=== PATIENT | male | born 1950 | race Caucasian/White ===

== ENCOUNTER 2017-01-16 14:35 | Emergency (ER) | payer OTHER, MEDICARE ==
[2017-01-16] MEDS ORDERED: Sodium Chloride 0.9% 1,000 ML PRIMARY IV ONE (15:10)
[2017-01-16] MEDS ORDERED: NORMAL SALINE 10 ML SYRINGE FLUSH IVP PRN (15:10)
[2017-01-16] MEDS ORDERED: IPRATROPIUM/ALBUTEROL SULFATE 3 ML NEB NEB ONE ×2 (15:10→18:08)
[2017-01-16 15:43] LABS: VENOUS PH 7.46 (7.32-7.42)
[2017-01-16 15:45] LABS: BASOPHILS % (AUTO) 1.1 % (0-1); EOSINOPHILS # (AUTO) 0.19 10*3/UL; EOSINOPHILS % (AUTO) 2.1 % (0-8); HEMATOCRIT 39.7 % (42.0-52.0); HEMOGLOBIN 13.4 g/dL (14.0-18.0); LYMPHOCYTES # (AUTO) 1.25 10*3/uL; MEAN CORPUSCULAR HGB CONC 33.8 g/dL (33-37); MEAN CORPUSCULAR VOLUME 88.8 FL (80-90); MEAN PLATELET VOLUME 9.7 FL (7.4-12.2); MONOCYTES # (AUTO) 1.08 10*3/UL (0.3-0.8); MONOCYTES % (AUTO) 11.7 % (5-15); NEUTROPHILS # (AUTO) 6.58 10*3/UL; NEUTROPHILS % (AUTO) 71.3 % (50-80); RED BLOOD COUNT 4.47 10^6/uL (4.70-6.10)
[2017-01-16 15:49] LABS: PLATELET MORPHOLOGY COMMENT NORMAL MORPHOLOGY (NORM); RBC MORPHOLOGY COMMENT NORMAL MORPHOLOGY (NORM); WBC MORPHOLOGY COMMENT NORMAL MORPHOLOGY (NORM)
[2017-01-16 15:59] VITALS: TEMP 97.3
[2017-01-16 16:05] LABS: BLOOD UREA NITROGEN 23 mg/dL (7-22); CALCIUM 8.8 mg/dL (8.7-10.7); EST GLOMERULAR FILTRATION > 60 (>60 ml/min/1.73m(2)); SERUM ALBUMIN 3.9 g/dL (3.5-4.8)
--- NOTE | 2017-01-16 16:43 | EKG ---
[address] [address] Measurements Intervals [place] Rate: 98 P: 68 NV: 134 QRS: 81 QRSD: 93 T: 59 QT: 348 QTc: 403 Interpretive Statements SINUS RHYTHM PROBABLE SEPTAL MYOCARDIAL INFARCTION [35 ms Q WAVE IN V1/V2], OF INDETERMINATE AGE No previous ECG available for comparison Electronically Signed On 01-18-17 15:30:59 MDT by Kojo Batista MD [email or web address]
[2017-01-16 17:21] VITALS: RESP 18
--- NOTE | 2017-01-16 17:28 | DI ---
HISTORY: Dyspnea and cough. COMPARISON: None available. TECHNIQUE: PA and lateral views of the chest were obtained and submitted for interpretation. FINDINGS: There is evidence of diffuse COPD. Increased interstitial markings and scarring of the pu lmonary viji are noted. IMPRESSION: 1. Mild diffuse chronic obstructive pulmonary disease and increased interstitial markings. NOTIFICATION: The above findings were phoned to Eric Park in the ER Department on 01/16/2017 at 7:38 pm EST.
--- NOTE | 2017-01-16 17:30 | DI ---
HISTORY: Dyspnea. History of bladder cancer. COMPARISON: None available. TECHNIQUE: CT images were obtained through the chest somewhat limited due to poor bolus timing. FINDINGS: There is some scarring in the pulmonary viji and the periphery of the lungs. There is no pulmonary embolism. Coronary artery disease is demonstrated. There is no infiltrate nor effusion. IMPRESSION: 1. No pulmonary embolism. 2. No masses seen. 3. Chronic obstructive pulmonary disease. 4. Simple cysts in the left kidney. 5. Right kidney with mild cortical thinning. NOTIFICATION: The above findings were phoned to Eric Park in the ER Department on 01/16/2017 at 7:38 pm EST.
[2017-01-16] MEDS ORDERED: AZITHROMYCIN 250 MG TABLET PO ONE (18:18)
[2017-01-16] MEDS ORDERED: ALBUTEROL SULFATE 8.5 GM HFA INHALER INH SCH (18:30)
--- NOTE | 2017-01-16 23:54 | PDOC ---
General Adult HPI - General Chief Complaint: Dyspnea Stated Complaint: diff. breathing x 2wks Date Seen by Provider: 01/16/17 Time Seen by Provider: 14:55 Source: POSITIVE: Patient Exam Limitations: POSITIVE: No limitations Nurse's Notes Reviewed & Considered: Yes - History of Present Illness Initial Comment: The patient is a 66-year-old male. He presents to the emergency room complaining of a 2 day history of cough productive of yellowish mucoid sputum. He is also had some shortness of breath during this time. He's not had any known fevers. No hemoptysis. No chest pain. Patient states that he has a history of bladder cancer diagnosed in 2008 and he states that this cancer was metastatic to his lungs. Patient underwent radiation and chemotherapy and he had a cystectomy and bladder reconstruction with his bowel. He has a urinary diversion. He states that his bladder cancer has been diagnosed as resolved. Patient had a myocardial infarction 2 years ago and had a coronary artery stents. Patient states he has had some hoarseness and URI symptoms recently. He smokes 5-15 cigarettes daily. Have you received a tetanus shot in the past 10 years?: Yes Body Location Affected: REPORTS: Chest (Cough, dyspnea) Timing: REPORTS: Gradual Duration: >24 hours Severity: Moderate Quality: REPORTS: Other (Patient denies any pain anywhere) Context: REPORTS: None Modifying Factors: improves with: Coughing Similar Symptoms Previously: Yes Recent Care Received: REPORTS: Denies Any Prior Injuries Related to Current Complaint?: No - Patient Home Medications Home Medications: Home Medications Azithromycin [Zithromax] 500 mg PO DAILY #5 tab 01/16/17 - Patient Allergies Allergies/Adverse Reactions: Allergies Allergy/AdvReac Type Severity Reaction Status Date / Time No Known Allergies Allergy Verified 01/16/17 15:22 Past Medical History - maneen HEENT History: Denies History Cardiovascular History: Previous ME Additional Cardiovasular History: ME with stent x1- 2 years ago Respiratory History: Denies History Gastrointestinal History: Hiatal Hernia Additional Gastrointestinal History: 7-9 hernia surgies Additional Genitourinary History: bladder stones, bladder c/a, bladder rebuild with intestine, kidney ablation Endocrine History: Denies History Musculoskeletal History: Denies History Neurological History: Denies History Blood Disorders: Denies History Psychiatric History: Denies History History of Sexually Transmitted Diseases: No Cancer History: Colon, Other (please comment) Cancer Treatment / Date(s) of Treatment: 8 yrs ago In Past Year Been Physically Harmed or Verbally Threatened: No History of MDRO: No History of Other Communicable Diseases: No Tobacco Use: Current Every Day Smoker Alcohol Use: Occasionally Type of alcohol normally used: Beer, Hard Liquor Substance Use Type: None Previous Surgical History: Yes Type / Date of Surgery: cancer 8yrs ago, 7-9 hernia surgies, [place] w/ luz elena x2 yrs ago Anesthesia Reactions: No Malignant Hyperthermia: No Family History of Malignant Hyperthermia: No Past Medical History Reviewed: Reviewed - No Changes ROS - Limitations ROS Limitations: No Limitations Constitution: REPORTS: Denies Symptoms Cardiovascular: REPORTS: Denies Cardiac Symptoms Respiratory: REPORTS: Cough Productive, Shortness Of Breath, Wheezing Neurological: REPORTS: Denies Neuro Symptoms Gastrointestinal: REPORTS: Denies GI Symptoms Endocrine: REPORTS: Denies Symptoms Musculoskeletal: REPORTS: Denies MS Symptoms Genitourinary: REPORTS: Denies Symptoms Eyes: REPORTS: Denies Symptoms ENT: REPORTS: Denies Symptoms Skin: REPORTS: Denies Skin Symptoms Lympathic: REPORTS: Denies Lympathic Symptoms Immunologic: POSITIVE: Denies Symptoms Psychiatric: POSITIVE: Denies Psych Symptoms General Adult Exam - General Appearance General Appearance: POSITIVE: Alert, Cooperative, No Acute Distress, No Evidence of Trauma - HEENT HEENT: POSITIVE: Head Inspection Nml, Eyes Inspection Nml, Ears Inspection Nml, Nose Inspection Nml, Oral/Dental Inspect. Nml, Pharynx Inspect. Nml, PERRL, EOMI - Pupils Pupil Size: 4 mm: Bilateral - Neck Neck: POSITIVE: Normal Inspection, Thyroid Normal - Respiratory Respiratory: POSITIVE: Chest Non-Tender, Wheezes (Scattered wheezes and rhonchi) , Rhonchi - Cardiovascular Cardiovascular: POSITIVE: Regular Rate & Rhythm, No Murmur, No Gallop, PMI Normal Peripheral Pulses: Radial (R): 2+, Radial (L): 2+ - Abdomen Abdomen: Soft: (All Quadrants), Normal Bowel Sounds: (All Quadrants), Denies Tenderness: (All Quadrants), No Splenomegaly: (All Quadrants), No Hepatomegaly: (All Quadrants), No Guarding: (All Quadrants), No Rebound: (All Quadrants), No Palpable Pulse: (All Quadrants), No Palpabale Mass: (All Quadrants), No Distention: (All Quadrants), No Rigidity: (All Quadrants) - Back Back: POSITIVE: Normal Inspection - Skin Skin: POSITIVE: Normal Color, Warm, Dry, No Rash - Extremities Extremity: Non-Tender: (All Extremities), Normal ROM: (All Extremities), Normal Inspection: (All Extremities) - Neurological / Psychological Neurological: 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 Some COPD. CT chest with contrast shows no masses or pulmonary emboli. No infiltrates. Lab Results Reviewed: Yes Lab Results:: Laboratory Results 01/16/17 01/16/17 01/16/17 Range/Units 15:11 15:35 15:42 WBC 9.22 (4.8-10.8) 10^3/uL RBC 4.47 L (4.70-6.10) 10^6/uL Hgb 13.4 L (14.0-18.0) g/dL Hct 39.7 L (42.0-52.0) % MCV 88.8 (80-90) FL MCH 30.0 (27-31) PG MCHC 33.8 (33-37) g/dL RDW Std Deviation 48.2 (39-50) fL RDW Coeff of Toni 15.2 H (11.5-14.5) % Plt Count 252 (140-350) 10*3/uL MPV 9.7 (7.4-12.2) FL Immature Gran % (Auto) 0.2 (0-5) % Neut % (Auto) 71.3 (50-80) % Lymph % (Auto) 13.6 (10-50) % [place] % (Auto) 11.7 (5-15) % Eos % (Auto) 2.1 (0-8) % Baso % (Auto) 1.1 H (0-1) % Immature Gran # (Auto) 0.02 10*3/UL Neut # (Auto) 6.58 10*3/UL Lymph # (Auto) 1.25 10*3/uL [place] # (Auto) 1.08 H (0.3-0.8) 10*3/UL Eos # (Auto) 0.19 10*3/UL Baso # (Auto) 0.10 10*3/UL WBC Morphology Comment Normal morphology (NORM) Plt Morphology Comment Normal morphology (NORM) RBC Morph Comment Normal morphology (NORM) D-Dimer 0.48 (0.00-0.59) mg/L VBG pH 7.46 H (7.32-7.42) VBG pCO2 33 L (45-55) mmHg VBG HCO3 23 (22-26) mmol/L VBG Base Excess -1 (-2-2) MMOL/L Sodium 141 (135-145) meq/L Potassium 3.7 L (3.8-5.2) meq/L Chloride 107 (98-112) meq/L Carbon Dioxide 26 (23-33) meq/L Anion Gap 8 (5-20) BUN 23 H (7-22) mg/dL Creatinine 1.0 (0.70-1.50) mg/dL Estimated GFR > 60 (>60 ml/min/1.73m(2)) BUN/Creatinine Ratio 23.00 H (6-20) Glucose 84 (78-110) mg/dL Calculated Osmolality 294.0 H (267-292) mOsm/kg Calcium 8.8 (8.7-10.7) mg/dL Magnesium 2.1 (1.6-2.4) mg/dL Total Bilirubin 0.6 (0.3-1.2) mg/dL AST 70 H (21-57) IU/L ALT 66 (21-72) IU/L Alkaline Phosphatase 86 (38-126) IU/L Troponin I 0.031 (< 0.040) ng/mL NT-Pro-B Natriuret Pep 446 H (0-125) PG/ML Total Protein 6.5 (6.1-8.0) g/dL Albumin 3.9 (3.5-4.8) g/dL Globulin 2.6 (2.50-4.10) g/dL Albumin/Globulin Ratio 1.50 (1.3-2.0) mg/g EKG Interpreted/Reviewed By Me:: Yes (compatible with old septal infarct) EKG Interpretation:: POSITIVE: Normal Sinus Rhythm, Normal Rate, Normal Intervals, Normal [place], Abnormal EKG. NEGATIVE: Normal QRS (Q waves in septal leads), Normal ST/T (Compatible with old septal infarct) - Patient's Progress Pain Medication Addressed: POSITIVE: Not Applicable School/Work Release Addressed: POSITIVE: Not Applicable Re-Examine Time: 18:00 Re-Examine Comment: Patient given a DuoNeb nebulizer treatment and later an albuterol nebulizer treatment with complete clearing of his wheezing. Patient feels much better on discharge. Patient has remained afebrile throughout his stay in the emergency room and his oxygen saturations on room air have been in excess of 93%. Status: POSITIVE: Improved, Re-Examined Antibiotics Given: Yes (Zithromax) - Consult Counseled: POSITIVE: Patient, RE: Lab Results, RE: Radiology Results, RE: DX, RE : Need for F/U Patient Care Time - Estimated PCT Patient Care Time (In Minutes): 55 Vital Signs - Recent Vital Signs Vital Signs: Vital Signs (Last 8 hours) Pulse Pulse Resp BP Pulse Ox 01/16/17 17:14 103 H 18 154/104 97 01/16/17 16:49 98 01/16/17 16:08 104 H 16 142/115 - VS Reviewed Vital Signs Reviewed: Yes Discharge Clinical Impression: Bronchitis, Chronic obstructive lung disease Discharge Disposition: Discharged to Home Condition: Fair Prescriptions / Orders: Azithromycin [Zithromax] 500 mg PO DAILY #5 tab Patient Instructions Given at Discharge: Acute Bronchitis (ED), Reactive Airways Disease (ED) Additional Instructions: Use albuterol inhaler, 2 puffs every 4 hours as necessary. STOP SMOKING. Zithromax, 1 tablet daily until gone. Follow-up with your primary care provider. Return here anytime if condition worsens in any way. Follow Up With: JEANETTE ESPARZA [Primary Care Provider] - (Instructions and medications as above. Follow-up with your primary care provider. Return here anytime if condition worsens in any way.)
== END 2017-01-16 18:56 | disposition home or self-care (01) ==
LOC: ER 14:35
DX: J20.9 Acute bronchitis, unspecified (principal); J44.9 Chronic obstructive pulmonary disease, unspecified; R05 Cough; R06.02 Shortness of breath; Z85.51 Personal history of malignant neoplasm of bladder
CPT/HCPCS: 36415 ×2; 71020; 71260; 80053; 82803; 83735; 83880; 84484; 85025; 85379; 93005; 93010; 94640; 99284 ×2; J7620; J7030

== ENCOUNTER 2017-01-18 07:33 | Inpatient (IN) | payer OTHER, MEDICARE ==
[2017-01-18] MEDS ORDERED: Sodium Chloride 0.9% 1,000 ML PRIMARY IV ONE (07:48)
[2017-01-18] MEDS ORDERED: methylPREDNISolone 125 MG/2 ML VIAL IVP ONE (07:48)
[2017-01-18] MEDS ORDERED: NORMAL SALINE 10 ML SYRINGE FLUSH IVP PRN ×2 (07:48→09:54)
[2017-01-18 08:06] LABS: BASOPHILS # (AUTO) 0.07 10*3/UL; EOSINOPHILS % (AUTO) 4.1 % (0-8); HEMATOCRIT 36.6 % (42.0-52.0); HEMOGLOBIN 12.1 g/dL (14.0-18.0); LYMPHOCYTES # (AUTO) 0.84 10*3/uL; MEAN CORPUSCULAR HEMOGLOBIN 29.7 PG (27-31); MEAN CORPUSCULAR HGB CONC 33.1 g/dL (33-37); MEAN CORPUSCULAR VOLUME 89.7 FL (80-90); MEAN PLATELET VOLUME 9.3 FL (7.4-12.2); MONOCYTES # (AUTO) 0.68 10*3/UL (0.3-0.8); MONOCYTES % (AUTO) 9.4 % (5-15); NEUTROPHILS # (AUTO) 5.32 10*3/UL; NEUTROPHILS % (AUTO) 73.6 % (50-80); RED BLOOD COUNT 4.08 10^6/uL (4.70-6.10)
[2017-01-18 08:08] LABS: PLATELET MORPHOLOGY COMMENT NORMAL MORPHOLOGY (NORM); RBC MORPHOLOGY COMMENT NORMAL MORPHOLOGY (NORM); WBC MORPHOLOGY COMMENT NORMAL MORPHOLOGY (NORM)
[2017-01-18 08:09] LABS: VENOUS PH 7.4 (7.32-7.42)
[2017-01-18 08:19] LABS: BLOOD UREA NITROGEN 16 mg/dL (7-22); CALCIUM 8.4 mg/dL (8.7-10.7); EST GLOMERULAR FILTRATION > 60 (>60 ml/min/1.73m(2)); SERUM ALBUMIN 3.3 g/dL (3.5-4.8)
--- NOTE | 2017-01-18 08:36 | PDOC ---
Dyspnea HPI - General Chief Complaint: Dyspnea Stated Complaint: DYSPNEA/COPD Date Seen by Provider: 01/18/17 Time Seen by Provider: 07:40 Source: POSITIVE: Patient, EMS Exam Limitations: POSITIVE: No limitations Treatment Prior to Arrival: REPORTS: Albuterol Neb Treatment, Other (DuoNeb per EMS in route) Nurse's Notes Reviewed & Considered: Yes - History of Present Illness Initial Comments: The patient is a 66-year-old male with a history of COPD who presents to the emergency department by ambulance with worsening shortness of breath. He states about 3 or 4 days ago he had onset of increase in productive cough and shortness of breath. He was evaluated in the emergency room here on Tuesday. He underwent workup including blood work as well as CT scan of the chest which showed emphysematous changes with no evidence of PE or obvious pneumonia. The patient does have a history of metastatic bladder cancer. He was discharged home with a prescription for Zithromax which she has been taking. He states that he woke up early this morning and states that he could not breathe. His lungs were very congested. He called EMS. When they arrived he was hypoxic. He received a DuoNeb and albuterol neb treatment in route and is feeling better on arrival. He does not normally wear oxygen at home. He does continue to smoke. He uses an albuterol inhaler at home. He does not currently have a nebulizer at home. He denies chest pain, fevers or chills or any other associated complaints. - Patient Home Medications Home Medications: Home Medications Azithromycin [Zithromax] 500 mg PO DAILY #5 tab 01/16/17 Albuterol 17 gm IH QID PRN 01/18/17 Atorvastatin Calcium 10 mg PO DAILY 01/18/17 Lisinopril 5 mg PO DAILY 01/18/17 Omeprazole 20 mg PO DAILY 01/18/17 - Patient Allergies Allergies/Adverse Reactions: Allergies Allergy/AdvReac Type Severity Reaction Status Date / Time No Known Allergies Allergy Verified 01/18/17 07:42 Past Medical History - heen HEENT History: Denies History Cardiovascular History: Hypertension, Previous IL, Hyperlipidemia Additional Cardiovasular History: IL with stent x1- 2 years ago Respiratory History: COPD, Emphysema Gastrointestinal History: GERD, Hiatal Hernia Additional Gastrointestinal History: 7-9 hernia surgies Additional Genitourinary History: bladder stones, bladder c/a, bladder rebuild with intestine, kidney ablation Endocrine History: Denies History Musculoskeletal History: Denies History Prosthesis or Implant: No Neurological History: Denies History Blood Disorders: Denies History Psychiatric History: Denies History History of Sexually Transmitted Diseases: No Cancer History: Other (please comment) Cancer Treatment / Date(s) of Treatment: 2008 In Past Year Been Physically Harmed or Verbally Threatened: No History of MDRO: No History of Other Communicable Diseases: No Tobacco Use: Former Smoker Alcohol Use: Rarely Substance Use Type: None Previous Surgical History: Yes Type / Date of Surgery: cancer 8yrs ago, 7-9 hernia surgies, [place] w/ luz elena x2 yrs ago Anesthesia Reactions: No Malignant Hyperthermia: No Past Medical History Reviewed: Reviewed - No Changes ROS - Limitations ROS Limitations: No Limitations Constitution: DENIES: Chills, Fever Cardiovascular: DENIES: Chest Pain, Heart Racing Respiratory: REPORTS: Cough Productive, Shortness Of Breath, Wheezing Neurological: REPORTS: Denies Neuro Symptoms Gastrointestinal: REPORTS: Denies GI Symptoms Musculoskeletal: REPORTS: Denies MS Symptoms Eyes: REPORTS: Denies Symptoms ENT: REPORTS: Denies Symptoms Skin: DENIES: Rash Dyspnea Physical Exam - General Appearance General Appearance: REPORTS: Alert, Cooperative, No Acute Distress - HEENT HEENT: POSITIVE: Head Inspection Nml, Eyes Inspection Nml, Oral/Dental Inspect. Nml, Pharynx Inspect. Nml - Respiratory Respiratory: REPORTS: No Respiratory Distress, Other (He does have rhonchi bilaterally as well as some expiratory wheeze, prolonged expiration) - Cardiovascular Cardiovascular: REPORTS: Regular Rate and Rhythm, Heart Sounds Normal Peripheral Pulses: Dorsalis-pedis (R): 2+, Dorsalis-pedis (L): 2+ - Abdomen Abdomen: Soft: (All Quadrants), Denies Tenderness: (All Quadrants), No Distention: (All Quadrants) - Skin Skin: REPORTS: Intact, No Rash - Extremities Extremity: Normal ROM: (All Extremities), Normal Inspection: (All Extremities) - Neurological / Psychological Neurological: POSITIVE: Oriented X3, Motor Normal, Sensation Normal Dyspnea Progress - Results Reviewed by me Xrays/CTs/US Reviewed by me: Yes Radiology Findings: Chest x-ray shows emphysematous changes with no acute infiltrate, no change when compared to 2 days ago. Lab Results Reviewed: Yes Lab Results:: Laboratory Results 01/18/17 01/18/17 Range/Units 08:02 08:04 WBC 7.23 (4.8-10.8) 10^3/uL RBC 4.08 L (4.70-6.10) 10^6/uL Hgb 12.1 L (14.0-18.0) g/dL Hct 36.6 L (42.0-52.0) % MCV 89.7 (80-90) FL MCH 29.7 (27-31) PG MCHC 33.1 (33-37) g/dL RDW Std Deviation 48.7 (39-50) fL RDW Coeff of Toni 15.0 H (11.5-14.5) % Plt Count 237 (140-350) 10*3/uL MPV 9.3 (7.4-12.2) FL Immature Gran % (Auto) 0.3 (0-5) % Neut % (Auto) 73.6 (50-80) % Lymph % (Auto) 11.6 (10-50) % [place] % (Auto) 9.4 (5-15) % Eos % (Auto) 4.1 (0-8) % Baso % (Auto) 1.0 (0-1) % Immature Gran # (Auto) 0.02 10*3/UL Neut # (Auto) 5.32 10*3/UL Lymph # (Auto) 0.84 10*3/uL [place] # (Auto) 0.68 (0.3-0.8) 10*3/UL Eos # (Auto) 0.30 10*3/UL Baso # (Auto) 0.07 10*3/UL WBC Morphology Comment Normal morphology (NORM) Plt Morphology Comment Normal morphology (NORM) RBC Morph Comment Normal morphology (NORM) VBG pH 7.40 (7.32-7.42) VBG pCO2 36 L (45-55) mmHg VBG HCO3 22 (22-26) mmol/L VBG Base Excess -2 (-2-2) MMOL/L Sodium 137 (135-145) meq/L Potassium 3.4 L (3.8-5.2) meq/L Chloride 106 (98-112) meq/L Carbon Dioxide 25 (23-33) meq/L Anion Gap 6 (5-20) BUN 16 (7-22) mg/dL Creatinine 1.0 (0.70-1.50) mg/dL Estimated GFR > 60 (>60 ml/min/1.73m(2)) BUN/Creatinine Ratio 16.00 (6-20) Glucose 97 (78-110) mg/dL Calculated Osmolality 284.0 (267-292) mOsm/kg Calcium 8.4 L (8.7-10.7) mg/dL Total Bilirubin 0.3 (0.3-1.2) mg/dL AST 46 (21-57) IU/L ALT 55 (21-72) IU/L Alkaline Phosphatase 74 (38-126) IU/L C-Reactive Protein 1.5 H (0.0-0.9) mg/dL Total Protein 5.9 L (6.1-8.0) g/dL Albumin 3.3 L (3.5-4.8) g/dL Globulin 2.6 (2.50-4.10) g/dL Albumin/Globulin Ratio 1.20 L (1.3-2.0) mg/g - Patient's Progress MDM / ED Course: The patient is afebrile and already on antibiotics, he had a CT scan of the chest that did not show any evidence of pneumonia 2 days ago. He was started on Solu-Medrol 125 mg IV. We attempted to take him off his oxygen however on room air he does dip into the mid-to upper 80s and he was placed back on oxygen per nasal cannula. Blood work today is essentially unremarkable. Findings were discussed with the patient. [place] it would be best that he be admitted for COPD exacerbation and hypoxia. The patient is in agreement with this plan. Dr. Howard has agreed to admit the patient as well. - Consult Counseled: POSITIVE: Patient, RE: Lab Results, RE: Radiology Results, RE: DX, RE : Need for F/U Patient Care Time - Estimated PCT Patient Care Time (In Minutes): 30 Vital Signs - Recent Vital Signs Vital Signs: Vital Signs (Last 8 hours) Temp Pulse Resp BP Pulse Ox 01/18/17 08:12 94 01/18/17 08:00 89 01/18/17 07:35 97.3 F 96 18 142/92 94 - VS Reviewed Vital Signs Reviewed: Yes (written nursing documentation reviewed) Discharge Clinical Impression: COPD exacerbation, Hypoxemia Discharge Disposition: Admit to Inpatient Condition: Fair Follow Up With: NONE,NONE [Primary Care Provider] - Date Decision to Admit to Inpatient: 01/18/17 Time Decision to Admit to Inpatient: 08:30
[2017-01-18] MEDS ORDERED: ACETAMINOPHEN 325 MG TABLET PO ONE (08:45)
[2017-01-18] MEDS ORDERED: KETOROLAC 15 MG/1 ML VIAL IVP ONE (08:45)
--- NOTE | 2017-01-18 08:56 | DI ---
PA /LATERAL CHEST X-RAY, 01/18/2017 7:48 AM : Clinical History: Cough. Previous Exam: 01/16/2017. There is no acute soft tissue or bony abnormality. Heart size is normal. There is no acute infiltrate or effusion, but there is some blunting of the left costophrenic angle and the left hilum is retract ed superiorly. There are some fibronodular stranding changes in the left upper lobe. This patient may have had a partial lobectomy probably involving the left upper lobe. The other possibility is that t he patient has had chronic scarring from a previous inflammatory process in the left upper lobe. Ther e is centrilobular emphysema. Mediastinal structures are otherwise normal. There are no pulmonary nod ules. Readin. There is no acute infiltrate or effusion. 2. There is volume loss in the left upper lobe. The left hilum is retracted superiorly. This patient either has had a previous partial left upper lobectomy or significant postinflammatory scarring in t he left upper lobe. 3. Centrilobular emphysema. There is chronic blunting of the left costophrenic angle.
[2017-01-18] MEDS ORDERED: methylPREDNISolone 125 MG/2 ML VIAL IVP SCH (09:54)
[2017-01-18] MEDS ORDERED: ALBUTEROL SULFATE 2.5 MG/3 ML NEB PRN (09:54)
[2017-01-18] MEDS ORDERED: LIDOCAINE W/ SODIUM BICARB 0.5 ML SYR SUBD PRN (09:54)
[2017-01-18] MEDS ORDERED: Pneumococcal Vacc 13 Syringe 0.5 ML DISP.SYRIN IM SCH (10:15)
[2017-01-18] MEDS: cefTRIAXone Inj 2 GM in Sodium Chloride 0.9% 100 ML IV SCH (10:26)
[2017-01-18] MEDS: IPRATROPIUM/ALBUTEROL SULFATE 3 ML NEB NEB SCH ×3 (11:21→18:55)
[2017-01-18] MEDS: methylPREDNISolone 125 MG/2 ML VIAL IVP SCH ×2 (14:09→20:17)
[2017-01-18] MEDS ORDERED: Pantoprazole Inj 40 MG in Normal Saline Flush 10 ML IVP ONE (14:47)
--- NOTE | 2017-01-18 19:59 | PDOC ---
History and Physical - History of Present Illness Date and Time of Service: 01/18/2017, 1330 Chief Complaint: cough and air hunger. History of Present Illness: This is a very pleasant 66 YO male with a history of tobacco abuse, HTN, high cholesterol and bladder cancer that presented earlier this AM with complaints of air hunger and not being able to catch his breath. He also stated he has had a cough for two months that seems to be getting worse. No fevers or chills. Has been on antibiotics for frequent UTIs in the past two months that have sometimes helped his cough. He does complain of throat drainage and attributes that to heartburn. He notes that his voice has been hoarse, but seems worse prior to breathing therapies. This morning, the cough and shortness of breath were as severe as the other day when he came into the emergency room. At that time, he had a negative CT for pulmonary embolism work up and was sent home on zithromax for a diagnosis of COPD with an exacerbation. He got steroids this morning and we ordered Rocephin. His cough is better when I see him today. Past Medical History Medical History: 1. COPD, not on oxygen at home. 2. HTN. 3. history of stage IV bladder cancer s/p diverting conduit with chronic catheter placement. multiple surgeries and radiation. 4. Hypercholesterolemia. 5. Hx of tobacco abuse. Surgical History: 1. surgeries related to bladder cancer with a conduit. 2. hernia repair. Pertinent Family History: significant for diabetes on his mother's side of the family Past Social History: X 3. has one healthy son. 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 quit smoking a year ago and does not drink alcohol. does drink up to 8 cups of coffee daily. Tobacco Use: Former Smoker Substance Use Type: None Alcohol Use: None Medication / Allergies Home Medications: Home Medications Medication Instructions Recorded Confirmed Type Azithromycin [Zithromax] 500 mg PO DAILY #5 tab 01/16/17 01/18/17 Rx Albuterol 17 gm IH QID PRN 01/18/17 01/18/17 History Atorvastatin Calcium 10 mg PO DAILY 01/18/17 01/18/17 History Lisinopril 5 mg PO DAILY 01/18/17 01/18/17 History Omeprazole 20 mg PO DAILY 01/18/17 01/18/17 History Allergies/Adverse Reactions: Allergies Allergy/AdvReac Type Severity Reaction Status Date / Time No Known Allergies Allergy Verified 01/18/17 18:14 Review of Systems - Review of Systems All Systems: Reviewed & No Additional Complaints Except as Stated (I did a 12 point review of systems and it was negative exept as per HPI and noted exceptions below:) - Ear/Nose Exam Ear/Nose Exam: REPORTS: Other (notes post pharyngeal drip) - Mouth/Throat Mouth/Throat Exam: REPORTS: Hoarseness (he states it is chronic) - Respiratory Respiratory: REPORTS: Cough (for past two months.) - Gastrointestinal Gastrointestinal / Abdominal: REPORTS: Heartburn - Genitourinary Genitourinary: REPORTS: Other (extensive bladder cancer therapy with diverting conduit and indwelling catheter and frequent UTIs) - Musculoskeletal Musculoskeletal: REPORTS: Negative System Review - Hematlogic / Lymphatic Hematologic / Lymphatic: REPORTS: Other (bladder cancer in past) - Neurological Neurologic: REPORTS: Negative System Review - Psychiatric Psychiatric: DENIES: Anhedonia, Anxiety, Depressed, Hopelessness, Hospitalization, Negative System Review, Other, Panic, Sadness, See HPI, Suicidality, Tearfullness Exam - Vitals Vital Signs: Vital Signs Temperature 97.8 F Temperature Source Temporal Artery Scan Pulse Rate [Apical] 86 Pulse Rate [Pulse Oximeter] 94 Pulse Rate 94 Respiratory Rate 16 Blood Pressure [Right Arm] 127/65 Blood Pressure 137/101 Pulse Ox 94 Oxygen Flow Rate 2 Oxygen Delivery Method Room Air Height 6 ft Weight 202 lb 11.2 oz - General General Appearance: POSITIVE: No Acute Distress, Cooperative - Head Head Exam: POSITIVE: Normal Inspection, Normocephalic, Atraumatic - Eye Eye Exam: POSITIVE: EOMI, No Scleral Icterus - ENT ENT Exam: POSITIVE: Mucous Membranes Moist - Neck Neck Exam: POSITIVE: Normal Inspection, No Tenderness, No Thyromegaly - Respiratory Respiratory Exam: POSITIVE: Breathing Non Labored, Normal to Percussion and Palpation, Coarse Breath Sounds - Cardiovascular Cardiovascular Exam: POSITIVE: RRR, No Murmur, No Clicks, No Gallops, No Rubs, No JVD - GI/Abdominal GI/Abdominal Exam: POSITIVE: Normal Bowel Sounds, Non Tender, Non Distended, Soft Additional GI/Abdominal Exam Details: scars from prior ileoconduit for bladder noted. indwelling catheter in left mid lower quadrant of abdomen without erythema or discharge. - Rectal Rectal Exam: POSITIVE: Deferred - External Exam: POSITIVE: Deferred Exam: POSITIVE: Deferred - Extremities Extremities Exam: POSITIVE: No Clubbing Present, No Edema Present, No Cyanosis Present - Back Back Exam: POSITIVE: Normal Inspection, No CVA Tenderness - Neurological Neurological Exam: POSITIVE: Alert, Oriented x 3, No Facial Droop, Speech Intact / Clear, Moves All Extremities Equally - Psychiatric Psychiatric Exam: POSITIVE: Normal Affect, Normal Mood - Central Line Examination Central Line Present on Admission: No Results - Labs CBC and BMP: 01/18/17 08:02 01/18/17 08:02 Labs - Last 24 Hours: Laboratory Results 01/18/17 01/18/17 Range/Units 08:02 08:04 WBC 7.23 (4.8-10.8) 10^3/uL RBC 4.08 L (4.70-6.10) 10^6/uL Hgb 12.1 L (14.0-18.0) g/dL Hct 36.6 L (42.0-52.0) % MCV 89.7 (80-90) FL MCH 29.7 (27-31) PG MCHC 33.1 (33-37) g/dL RDW Std Deviation 48.7 (39-50) fL RDW Coeff of Toni 15.0 H (11.5-14.5) % Plt Count 237 (140-350) 10*3/uL MPV 9.3 (7.4-12.2) FL Immature Gran % (Auto) 0.3 (0-5) % Neut % (Auto) 73.6 (50-80) % Lymph % (Auto) 11.6 (10-50) % [place] % (Auto) 9.4 (5-15) % Eos % (Auto) 4.1 (0-8) % Baso % (Auto) 1.0 (0-1) % Immature Gran # (Auto) 0.02 10*3/UL Neut # (Auto) 5.32 10*3/UL Lymph # (Auto) 0.84 10*3/uL [place] # (Auto) 0.68 (0.3-0.8) 10*3/UL Eos # (Auto) 0.30 10*3/UL Baso # (Auto) 0.07 10*3/UL WBC Morphology Comment Normal morphology (NORM) Plt Morphology Comment Normal morphology (NORM) RBC Morph Comment Normal morphology (NORM) VBG pH 7.40 (7.32-7.42) VBG pCO2 36 L (45-55) mmHg VBG HCO3 22 (22-26) mmol/L VBG Base Excess -2 (-2-2) MMOL/L Sodium 137 (135-145) meq/L Potassium 3.4 L (3.8-5.2) meq/L Chloride 106 (98-112) meq/L Carbon Dioxide 25 (23-33) meq/L Anion Gap 6 (5-20) BUN 16 (7-22) mg/dL Creatinine 1.0 (0.70-1.50) mg/dL Estimated GFR > 60 (>60 ml/min/1.73m(2)) BUN/Creatinine Ratio 16.00 (6-20) Glucose 97 (78-110) mg/dL Calculated Osmolality 284.0 (267-292) mOsm/kg Calcium 8.4 L (8.7-10.7) mg/dL Total Bilirubin 0.3 (0.3-1.2) mg/dL AST 46 (21-57) IU/L ALT 55 (21-72) IU/L Alkaline Phosphatase 74 (38-126) IU/L C-Reactive Protein 1.5 H (0.0-0.9) mg/dL Total Protein 5.9 L (6.1-8.0) g/dL Albumin 3.3 L (3.5-4.8) g/dL Globulin 2.6 (2.50-4.10) g/dL Albumin/Globulin Ratio 1.20 L (1.3-2.0) mg/g - EKG Data -: EKG Interpreted by Me (from 01/16/2017) Rate: Normal EKG Shows Normal: Sinus Rhythm - Imaging Status: Image Reviewed by Me (CXR and CT scan reviewed by me. CXR from today consistent with COPD. CT of chest from 01/16/2017 does not show any pneumonia, looks like it is positive for emphysema) Assessment and Plan - Patient Problems (1) COPD exacerbation Current Visit: Yes Status: Acute (2) Hypercholesteremia Current Visit: Yes Status: Acute (3) HTN (hypertension) Current Visit: Yes Status: Acute Qualifiers: Hypertension type: essential hypertension Qualified Description: Essential hypertension Qualifier Code(s): (I10) Essential (primary) hypertension (4) Hx of bladder cancer Current Visit: Yes Status: Acute - Assessment / Plan Additional Assessment/Plan Details: admit treat with IV rocephin initially, along with steroids given hoarseness, consider laryngeal trachael reflux, or other laryngeal problems and get ENT evaluation post hospital stay. PPI on a BID basis have patient cut back to no more than 2 cups of coffee to minimize cough symptoms from GERD which the patient likely has if reflux and cough persist despite these issues, stop the ACEI and patient may need further GI work up oxygen if indicated check labs in AM discussed with the patient and he agrees with the plan.
[2017-01-18] MEDS: Pantoprazole Inj 40 MG in Normal Saline Flush 10 ML IVP SCH (20:17)
[2017-01-18] MEDS: ATORVASTATIN 10 MG TABLET PO SCH (20:18)
[2017-01-19] MEDS: methylPREDNISolone 125 MG/2 ML VIAL IVP SCH ×4 (01:10→20:02)
[2017-01-19 04:30] LABS: VENOUS PH 7.43 (7.32-7.42)
[2017-01-19 04:41] LABS: BASOPHILS # (AUTO) 0.01 10*3/UL; BASOPHILS % (AUTO) 0.1 % (0-1); EOSINOPHILS # (AUTO) 0 10*3/UL; EOSINOPHILS % (AUTO) 0 % (0-8); HEMATOCRIT 35.8 % (42.0-52.0); HEMOGLOBIN 11.9 g/dL (14.0-18.0); LYMPHOCYTES # (AUTO) 0.44 10*3/uL; MEAN CORPUSCULAR HEMOGLOBIN 29.5 PG (27-31); MEAN CORPUSCULAR HGB CONC 33.2 g/dL (33-37); MEAN CORPUSCULAR VOLUME 88.6 FL (80-90); MEAN PLATELET VOLUME 9.7 FL (7.4-12.2); MONOCYTES % (AUTO) 1.6 % (5-15); NEUTROPHILS # (AUTO) 11.77 10*3/UL; NEUTROPHILS % (AUTO) 94.5 % (50-80); RED BLOOD COUNT 4.04 10^6/uL (4.70-6.10)
[2017-01-19 04:51] LABS: BLOOD UREA NITROGEN 19 mg/dL (7-22); BUN/CREATININE RATIO 21.11 (6-20); CALCIUM 8.5 mg/dL (8.7-10.7); EST GLOMERULAR FILTRATION > 60 (>60 ml/min/1.73m(2))
[2017-01-19 05:08] LABS: PLATELET MORPHOLOGY COMMENT NORMAL MORPHOLOGY (NORM); RBC MORPHOLOGY COMMENT NORMAL MORPHOLOGY (NORM); WBC MORPHOLOGY COMMENT NORMAL MORPHOLOGY (NORM)
[2017-01-19] MEDS: IPRATROPIUM/ALBUTEROL SULFATE 3 ML NEB NEB SCH ×4 (07:01→18:26)
[2017-01-19] MEDS ORDERED: LISINOPRIL 5 MG TABLET PO SCH (09:00)
[2017-01-19] MEDS ORDERED: Sodium Chloride 0.9% 100 ML IV ONE (10:10)
[2017-01-19] MEDS: cefTRIAXone Inj 2 GM in Sodium Chloride 0.9% 100 ML IV SCH (10:14)
[2017-01-19] MEDS: Pantoprazole Inj 40 MG in Normal Saline Flush 10 ML IVP SCH ×2 (10:14→20:00)
[2017-01-19] MEDS: ENOXAPARIN SODIUM 40 MG/0.4 ML SYRINGE SUBCUT SCH (10:14)
--- NOTE | 2017-01-19 17:20 | PE ---
[facility] [place] Interpretive Statements [email or web address]
--- NOTE | 2017-01-19 19:44 | PDOC(PROG) ---
Date and Time of Service: 01/19/2017, 1939 Interval History: patient seen and evaluated earlier today. no chest pain. cough improved some. voice hoarseness about the same. no nausea or vomiting. Objective : Data - Labs CBC and BMP: 01/19/17 04:15 01/19/17 04:15 Labs - Last 24 Hours: Laboratory Results 01/19/17 01/19/17 Range/Units 04:15 04:25 WBC 12.46 H (4.8-10.8) 10^3/uL RBC 4.04 L (4.70-6.10) 10^6/uL Hgb 11.9 L (14.0-18.0) g/dL Hct 35.8 L (42.0-52.0) % MCV 88.6 (80-90) FL MCH 29.5 (27-31) PG MCHC 33.2 (33-37) g/dL RDW Std Deviation 47.0 (39-50) fL RDW Coeff of Toni 14.8 H (11.5-14.5) % Plt Count 275 (140-350) 10*3/uL MPV 9.7 (7.4-12.2) FL Immature Gran % (Auto) 0.3 (0-5) % Neut % (Auto) 94.5 H (50-80) % Lymph % (Auto) 3.5 L (10-50) % [place] % (Auto) 1.6 L (5-15) % Eos % (Auto) 0 (0-8) % Baso % (Auto) 0.1 (0-1) % Immature Gran # (Auto) 0.04 10*3/UL Neut # (Auto) 11.77 10*3/UL Lymph # (Auto) 0.44 10*3/uL [place] # (Auto) 0.20 L (0.3-0.8) 10*3/UL Eos # (Auto) 0 10*3/UL Baso # (Auto) 0.01 10*3/UL WBC Morphology Comment Normal morphology (NORM) Plt Morphology Comment Normal morphology (NORM) RBC Morph Comment Normal morphology (NORM) VBG pH 7.43 H (7.32-7.42) VBG pCO2 35 L (45-55) mmHg VBG HCO3 23 (22-26) mmol/L VBG Base Excess -1 (-2-2) MMOL/L Sodium 136 (135-145) meq/L Potassium 3.9 (3.8-5.2) meq/L Chloride 105 (98-112) meq/L Carbon Dioxide 25 (23-33) meq/L Anion Gap 6 (5-20) BUN 19 (7-22) mg/dL Creatinine 0.9 (0.70-1.50) mg/dL Estimated GFR > 60 (>60 ml/min/1.73m(2)) BUN/Creatinine Ratio 21.11 H (6-20) Glucose 153 H (78-110) mg/dL Calculated Osmolality 286.0 (267-292) mOsm/kg Calcium 8.5 L (8.7-10.7) mg/dL Additional Lab Results: I had the patient do pulmonary function tests. The airflow and FEV1 are all consistent with mild COPD. Objective : Exam - General General Appearance: No Acute Distress, Cooperative Additional General Exam Details: Vital Signs - Last Taken Temperature 97.9 F 01/19/17 17:00 Pulse Rate 104 H 01/19/17 17:00 Respiratory Rate 20 01/19/17 17:00 Blood Pressure 141/82 01/19/17 17:00 Pulse Ox 94 01/19/17 17:00 - Head Head Exam: Normal Inspection, Normocephalic, Atraumatic - Respiratory Respiratory Exam: Breathing Non Labored, Decreased Breath Sounds - Cardiovascular Cardiovascular Exam: RRR, No Murmur, No Clicks, No Gallops, No Rubs, No JVD - GI/Abdominal GI/Abdominal Exam: Normal Bowel Sounds, Non Tender, Non Distended, Soft - Extremities Extremities Exam: No Clubbing Present, No Edema Present, No Cyanosis Present - Neurological Neurological Exam: Alert, Oriented x 3, No Facial Droop, Speech Intact / Clear, Moves All Extremities Equally Assessment and Plan - Patient Problems (1) COPD exacerbation Current Visit: Yes Status: Acute (2) Hypercholesteremia Current Visit: Yes Status: Acute (3) HTN (hypertension) Current Visit: Yes Status: Acute Qualifiers: Hypertension type: essential hypertension Qualified Description: Essential hypertension Qualifier Code(s): (I10) Essential (primary) hypertension (4) Hx of bladder cancer Current Visit: Yes Status: Acute - Assessment / Plan Additional Assessment/Plan Details: continue antibiotics and steroids, taper the steroids as an outpatient will switch to oral antibiotics tomorrow has steroid induced hyperglycemia, check A1C may benefit the most from his smoking cessation over this past year. Given COPD , oxygen when indicated ENT evaluation arranged for later this month (regarding: voice hoarseness) changed ACEI as requested by patient, but cough is generally a class side effect and not specific to one agent. may need to consider different class of antihypertensives if not seeing improvements in cough over next two months. continue BID PPI. I think LTR is likely; cut back on caffeine consumption.
[2017-01-19] MEDS: ATORVASTATIN 10 MG TABLET PO SCH (20:01)
[2017-01-20] MEDS: methylPREDNISolone 125 MG/2 ML VIAL IVP SCH ×2 (01:47→08:24)
[2017-01-20] MEDS: IPRATROPIUM/ALBUTEROL SULFATE 3 ML NEB NEB SCH ×2 (06:19→10:35)
[2017-01-20] MEDS: ENOXAPARIN SODIUM 40 MG/0.4 ML SYRINGE SUBCUT SCH (08:26)
[2017-01-20] MEDS: Pantoprazole Inj 40 MG in Normal Saline Flush 10 ML IVP SCH (08:27)
[2017-01-20 09:00] VITALS: RESP 20; TEMP 98.3
[2017-01-20] MEDS ORDERED: RAMIPRIL 2.5 MG CAPSULE PO SCH (09:00)
[2017-01-20] MEDS: cefTRIAXone Inj 2 GM in Sodium Chloride 0.9% 100 ML IV SCH (09:36)
[2017-01-20] MEDS ORDERED: CEFUROXIME 500 MG TABLET PO ONE (09:43)
--- NOTE | 2017-01-20 10:46 | DCSUMMARY ---
Hospitalization Summary Admit Date: 01/18/17 Discharge Date: 01/20/17 Primary Diagnosis:: COPD exacerbation Hospital Course: This very pleasant 66-year-old male who came in with symptoms of cough for 2 months, no hypoxia, but definite change in his cough and increased shortness of breath. He stated breathing treatments helped, and he was admitted for COPD exacerbation. We placed him on Rocephin and steroids, and eventually switched him to cefuroxime and prednisone. He has significantly improved, cough is resolved, and he is feeling much better. The patient does continue to have a hoarse voice although somewhat better through the hospital stay. It could be that he has laryngeal tracheal reflux or that he has some other pathology going on given his smoking history. We have arranged for him to see research worker encyclopedia Dr. Fitch in [place] later this month. Given the improvement in symptoms, no completes of chest pain, shortness breath , nausea or vomiting or abdominal pain today, patient is discharged home. Assessment and Plan: 1. As per discharge assessments noted 2. Disposition: Patient is discharged home. 3. Condition on discharge, stable and improved. 4. Diet: regular diet 5. Activities: resume normal activities 6. Follow-Up: 1. See primary care provider in 7 days post discharge 2. See Dr. Fitch with ear nose and throat in [place] later this month for evaluation of voice hoarseness in place and report to the [place] [facility]. 7. Medications at the Time of Discharge: Home Medications Medication Instructions Recorded Confirmed Type Albuterol 17 gm IH QID PRN 01/18/17 01/18/17 History Atorvastatin Calcium 10 mg PO DAILY 01/18/17 01/18/17 History Albuterol/Ipratrop Neb Soln 3 ml IH Q6H PRN #120 ampul.neb 01/19/17 Rx [Duoneb Neb Soln] Cefuroxime Axetil [Ceftin] 500 mg PO BID #8 tablet 01/19/17 Rx Pantoprazole Sodium [Protonix] 40 mg PO BID #60 tablet 01/19/17 Rx Prednisone 10 mg PO DAILY #30 tab 01/19/17 Rx Ramipril [Altace] 5 mg PO DAILY cap 01/19/17 Rx 8. Time, care, counseling and coordination of care for this discharge is less than 30 minutes. Exam - Vitals Vital Signs: Vital Signs Vital Signs - Last Taken Temperature 98.3 F 01/20/17 08:56 Pulse Rate 89 01/20/17 08:56 Respiratory Rate 20 01/20/17 08:56 Blood Pressure 109/70 01/20/17 08:56 Pulse Ox 95 01/20/17 08:56 Pulse Ox 95 Oxygen Flow Rate 2 Oxygen Delivery Method Room Air Height 6 ft Weight 201 lb 6 oz - General General Appearance: POSITIVE: No Acute Distress, Cooperative - Eye Eye Exam: POSITIVE: No Scleral Icterus - ENT ENT Exam: POSITIVE: Mucous Membranes Moist - Respiratory Respiratory Exam: POSITIVE: Clear to Auscultation - Bilaterally, Breathing Non Labored - Cardiovascular Cardiovascular Exam: POSITIVE: RRR, No Murmur, No Clicks, No Gallops, No Rubs, No JVD - GI/Abdominal GI/Abdominal Exam: POSITIVE: Normal Bowel Sounds, Non Tender, Non Distended, Soft - Extremities Extremities Exam: POSITIVE: No Clubbing Present, No Edema Present, No Cyanosis Present - Neurological Neurological Exam: POSITIVE: Alert, Oriented x 3, No Facial Droop, Speech Intact / Clear, Moves All Extremities Equally Data Perinent Studies: Laboratory Results 01/18/17 01/18/17 01/19/17 Range/Units 08:02 08:04 04:15 WBC 7.23 12.46 H (4.8-10.8) 10^3/uL RBC 4.08 L 4.04 L (4.70-6.10) 10^6/uL Hgb 12.1 L 11.9 L (14.0-18.0) g/dL Hct 36.6 L 35.8 L (42.0-52.0) % MCV 89.7 88.6 (80-90) FL MCH 29.7 29.5 (27-31) PG MCHC 33.1 33.2 (33-37) g/dL RDW Std Deviation 48.7 47.0 (39-50) fL RDW Coeff of Toni 15.0 H 14.8 H (11.5-14.5) % Plt Count 237 275 (140-350) 10*3/uL MPV 9.3 9.7 (7.4-12.2) FL Immature Gran % (Auto) 0.3 0.3 (0-5) % Neut % (Auto) 73.6 94.5 H (50-80) % Lymph % (Auto) 11.6 3.5 L (10-50) % [place] % (Auto) 9.4 1.6 L (5-15) % Eos % (Auto) 4.1 0 (0-8) % Baso % (Auto) 1.0 0.1 (0-1) % Immature Gran # (Auto) 0.02 0.04 10*3/UL Neut # (Auto) 5.32 11.77 10*3/UL Lymph # (Auto) 0.84 0.44 10*3/uL [place] # (Auto) 0.68 0.20 L (0.3-0.8) 10*3/UL Eos # (Auto) 0.30 0 10*3/UL Baso # (Auto) 0.07 0.01 10*3/UL WBC Morphology Comment Normal morphology Normal morphology (NORM) Plt Morphology Comment Normal morphology Normal morphology (NORM) RBC Morph Comment Normal morphology Normal morphology (NORM) VBG pH 7.40 (7.32-7.42) VBG pCO2 36 L (45-55) mmHg VBG HCO3 22 (22-26) mmol/L VBG Base Excess -2 (-2-2) MMOL/L Sodium 137 136 (135-145) meq/L Potassium 3.4 L 3.9 (3.8-5.2) meq/L Chloride 106 105 (98-112) meq/L Carbon Dioxide 25 25 (23-33) meq/L Anion Gap 6 6 (5-20) BUN 16 19 (7-22) mg/dL Creatinine 1.0 0.9 (0.70-1.50) mg/dL Estimated GFR > 60 > 60 (>60 ml/min/1.73m(2)) BUN/Creatinine Ratio 16.00 21.11 H (6-20) Glucose 97 153 H (78-110) mg/dL Calculated Osmolality 284.0 286.0 (267-292) mOsm/kg Calcium 8.4 L 8.5 L (8.7-10.7) mg/dL Total Bilirubin 0.3 (0.3-1.2) mg/dL AST 46 (21-57) IU/L ALT 55 (21-72) IU/L Alkaline Phosphatase 74 (38-126) IU/L C-Reactive Protein 1.5 H (0.0-0.9) mg/dL Total Protein 5.9 L (6.1-8.0) g/dL Albumin 3.3 L (3.5-4.8) g/dL Globulin 2.6 (2.50-4.10) g/dL Albumin/Globulin Ratio 1.20 L (1.3-2.0) mg/g 01/19/17 Range/Units 04:25 WBC (4.8-10.8) 10^3/uL RBC (4.70-6.10) 10^6/uL Hgb (14.0-18.0) g/dL Hct (42.0-52.0) % MCV (80-90) FL MCH (27-31) PG MCHC (33-37) g/dL RDW Std Deviation (39-50) fL RDW Coeff of Toni (11.5-14.5) % Plt Count (140-350) 10*3/uL MPV (7.4-12.2) FL Immature Gran % (Auto) (0-5) % Neut % (Auto) (50-80) % Lymph % (Auto) (10-50) % [place] % (Auto) (5-15) % Eos % (Auto) (0-8) % Baso % (Auto) (0-1) % Immature Gran # (Auto) 10*3/UL Neut # (Auto) 10*3/UL Lymph # (Auto) 10*3/uL [place] # (Auto) (0.3-0.8) 10*3/UL Eos # (Auto) 10*3/UL Baso # (Auto) 10*3/UL WBC Morphology Comment (NORM) Plt Morphology Comment (NORM) RBC Morph Comment (NORM) VBG pH 7.43 H (7.32-7.42) VBG pCO2 35 L (45-55) mmHg VBG HCO3 23 (22-26) mmol/L VBG Base Excess -1 (-2-2) MMOL/L Sodium (135-145) meq/L Potassium (3.8-5.2) meq/L Chloride (98-112) meq/L Carbon Dioxide (23-33) meq/L Anion Gap (5-20) BUN (7-22) mg/dL Creatinine (0.70-1.50) mg/dL Estimated GFR (>60 ml/min/1.73m(2)) BUN/Creatinine Ratio (6-20) Glucose (78-110) mg/dL Calculated Osmolality (267-292) mOsm/kg Calcium (8.7-10.7) mg/dL Total Bilirubin (0.3-1.2) mg/dL AST (21-57) IU/L ALT (21-72) IU/L Alkaline Phosphatase (38-126) IU/L C-Reactive Protein (0.0-0.9) mg/dL Total Protein (6.1-8.0) g/dL Albumin (3.5-4.8) g/dL Globulin (2.50-4.10) g/dL Albumin/Globulin Ratio (1.3-2.0) mg/g Patient Problems - Patient Problem List (1) COPD exacerbation Current Visit: Yes Status: Acute (2) Hypercholesteremia Current Visit: Yes Status: Acute (3) HTN (hypertension) Current Visit: Yes Status: Acute Qualifiers: Hypertension type: essential hypertension Qualified Description: Essential hypertension Qualifier Code(s): (I10) Essential (primary) hypertension (4) Hx of bladder cancer Current Visit: Yes Status: Acute
== END 2017-01-20 10:47 | disposition home or self-care (01) | DRG 192 ==
LOC: ER 07:33 → UNDOADMIN 09:03 → MED/SURG 09:03
PROVIDERS: ADMIT Family Medicine; ATTEND Family Medicine
DX: J44.1 Chronic obstructive pulmonary disease with (acute) exacerbation (principal); R09.02 Hypoxemia; E78.00 Pure hypercholesterolemia, unspecified; I10 Essential (primary) hypertension; Z85.51 Personal history of malignant neoplasm of bladder
CPT/HCPCS: 36415 ×2; 71020; 80053; 82803; 85025; 86140; 96374; 96375; 99284 ×2; J2930; 80048; 94375; 94640; 94761; J0696; J1650; J1885; J3490; J7050; J7620